=== PATIENT | male | born 1965 | race African-American/Black ===

== ENCOUNTER 2019-08-02 16:16 | Emergency (ER) | payer MEDICAID ==
[~2019-08-02] VITALS: Ht 190.5 cm; Wt 131.0 kg
[2019-08-02 16:25] VITALS: BP 159/85
[2019-08-02] MEDS ORDERED: IBUPROFEN 600MG TABLET PO ONE (20:15)
== END 2019-08-02 20:25 | disposition home or self-care (01) ==
LOC: ER 16:16
DX: S16.1XXA Strain of muscle, fascia and tendon at neck level, initial encounter (principal); M54.9 Dorsalgia, unspecified; F17.200 Nicotine dependence, unspecified, uncomplicated; V49.88XA Car occupant (driver) (passenger) injured in other specified transport accidents, initial encounter; Y93.89 Activity, other specified; Y92.89 Other specified places as the place of occurrence of the external cause; Y99.8 Other external cause status
CPT/HCPCS: 99282